=== PATIENT | female | born 1975 | race Caucasian/White ===

== ENCOUNTER 2018-08-03 13:09 | Emergency (ER) | payer MEDICARE, MEDICAID ==
[~2018-08-03] VITALS: Ht 160 cm; Wt 118.0 kg
[2018-08-03 13:17] VITALS: Ht 160 cm; Wt 118.0 kg
[2018-08-03 14:26] LABS: HEMATOCRIT 40.1 % (36.0-48.0); HEMOGLOBIN 13.1 g/dL (12-16); LYMPHOCYTES 11.2 % (15-50); MCH 27.3 pg (26.0-34.0); MCHC 32.7 g/dL (31.0-37.0); MCV 83.5 fL (80.0-100.0); NEUTROPHILS 84.4 % (40-80); PLATELET COUNT 442 10x3/uL (130-400); RDW 13.4 % (11.5-14.5); WBC 19.6 10x3/uL (4.8-10.8)
[2018-08-03 14:42] LABS: ALBUMIN 3.2 g/dL (3.4-5.0); ANION GAP 10.2 mmol/L (8-16); BILIRUBIN - TOTAL 0.32 mg/dL (0.2-1.3); CALCIUM 8.8 mg/dL (8.5-10.1); CREATININE - SERUM 0.9 mg/dL (0.6-1.3); POTASSIUM - SERUM 3.2 mmol/L (3.5-5.1)
[2018-08-03] MEDS ORDERED: AUGMENTIN 875-11 TAB PO (15:15)
[2018-08-03 15:27] VITALS: BP 1169/67
== END 2018-08-03 15:27 | disposition home or self-care (01) ==
LOC: D.ER 13:09
PROVIDERS: Family Medicine
DX: J01.90 Acute sinusitis, unspecified (principal); R53.81 Other malaise; R50.9 Fever, unspecified; K21.9 Gastro-esophageal reflux disease without esophagitis

== ENCOUNTER 2019-02-16 17:28 | Emergency (ER) | payer MEDICARE, MEDICAID ==
[~2019-02-16] VITALS: Ht 160 cm; Wt 116.5 kg
[~2019-02-16 17:28] MED LIST: AUGMENTIN 875-11 TAB PO
[2019-02-16 17:40] VITALS: Ht 160 cm; Wt 116.5 kg
[2019-02-16 18:17] LABS: BASOPHILS 0.1 % (0-2); EOSINOPHILS 0.8 % (0-7); HEMATOCRIT 41.5 % (36.0-48.0); HEMOGLOBIN 13.7 g/dL (12-16); IMMATURE GRANULOCYTES 0.1 % (0-5); LYMPHOCYTES 2.8 % (15-50); MCH 28.3 pg (26.0-34.0); MCV 85.7 fL (80.0-100.0); MEAN PLATELET VOLUME 9.4 fL (7.4-10.4); MONOCYTES 2.8 % (2-11); NEUTROPHILS 93.4 % (40-80); RBC 4.84 10x6/uL (4.00-5.40); RDW 14.8 % (11.5-14.5); WBC 15.4 10x3/uL (4.8-10.8)
[2019-02-16 18:19] LABS: PLATELET COUNT 351 10x3/uL (130-400)
[2019-02-16 18:36] LABS: ALKALINE PHOSPHATASE 174 U/L (46-116); ALT (SGPT) 37 U/L (10-68); CALC OSMOLALITY 275 mosm/kg (275-300); CALCIUM 8.8 mg/dL (8.5-10.1); CARBON DIOXIDE 30.6 mmol/L (21.0-32.0); CHLORIDE - SERUM 99 mmol/L (98-107); CREATININE - SERUM 0.9 mg/dL (0.6-1.3); GLUCOSE 146 mg/dL (74-106); POTASSIUM - SERUM 3.4 mmol/L (3.5-5.1); SODIUM 137 mmol/L (136-145); UREA NITROGEN 9 mg/dL (7-18); eGFR NON AFRICAN AMERICAN 72 mL/min (90-120)
[2019-02-16 18:40] LABS: AMYLASE - SERUM 23 U/L (25-115); LIPASE 111 U/L (73-393)
[2019-02-16 18:43] LABS: TROPONIN-I < 0.017 ng/mL (0.000-0.060)
[2019-02-16 19:08] LABS: APPEARANCE CLEAR (CLEAR); BILIRUBIN NEGATIVE (NEGATIVE); COLOR YELLOW (YELLOW); GLUCOSE NEGATIVE (NEGATIVE); KETONE MODERATE mg/dL (NEGATIVE); NITRITE NEGATIVE (NEGATIVE); PROTEIN NEGATIVE (NEGATIVE); UROBILINOGEN NORMAL (NORMAL)
[2019-02-16 19:09] LABS: HCG URINE NEGATIVE (NEGATIVE)
[2019-02-16] MEDS ORDERED: ZOFRAN ODT4 MG/UDTAB PO (20:27)
[2019-02-17 00:24] VITALS: BP 124/78
== END 2019-02-16 21:00 | disposition home or self-care (01) ==
LOC: D.ER 17:28
PROVIDERS: Family Medicine
DX: K52.9 Noninfective gastroenteritis and colitis, unspecified (principal); R11.2 Nausea with vomiting, unspecified